=== PATIENT | male | born 1970 | race Caucasian/White ===

== ENCOUNTER 2022-09-17 16:02 | Emergency (ER) | payer MEDICAID ==
[~2022-09-17] VITALS: Ht 172.7 cm; Wt 61.2 kg
[2022-09-17 16:25] VITALS: BP 205/111; O2SAT 100
[2022-09-17 17:39] LABS: CHLORIDE 106 mEq/L (98-107)
[2022-09-17 17:43] LABS: BASOPHILS % 0.3 % (0.0-2.0); EOSINOPHILS % 2.4 % (0.0-5.0); HEMATOCRIT. 30.5 % (42.0-52.0); HEMOGLOBIN. 10.6 g/dL (14.0-18.0); LYMPHOCYTES % 22.2 % (20.0-50.0); MEAN CORPUSCULAR HEMOGLOBIN 29.2 pg (28.0-32.0); MEAN PLATELET VOLUME 8.6 fl (7.4-10.4); NEUTROPHILS % 70.1 % (40.0-76.0); PLATELET 383 x1000/uL (130-400); RED BLOOD CELL COUNT 3.63 mill/uL (4.7-6.1); RED CELL DISTRIBUTION WIDTH 14.4 % (11.6-14.6)
[2022-09-17 20:36] VITALS: PULSE 89; RESP 18; TEMP 98.2
== END 2022-09-17 20:37 | disposition home or self-care (01) ==
LOC: ER 17:32
DX: E11.319 Type 2 diabetes mellitus with unspecified diabetic retinopathy without macular edema (principal)
CPT/HCPCS: 36415; 80053; 82962; 85025; 99283